=== PATIENT | male | born 1940 | race Caucasian/White ===

== ENCOUNTER 2019-04-03 18:20 | Emergency (ER) | payer OTHER, SELFPAY ==
[~2019-04-03] VITALS: Ht 172.7 cm; Wt 72.6 kg
[~2019-04-03 18:20] MED LIST: FOLI1 PO; METO25ER PO; NIAC500 PO
== END 2019-04-03 19:41 | disposition home or self-care (01) ==
LOC: ER 18:20
DX: S01.81XA Laceration without foreign body of other part of head, initial encounter (principal); W01.198A Fall on same level from slipping, tripping and stumbling with subsequent striking against other object, initial encounter; I10 Essential (primary) hypertension; E78.5 Hyperlipidemia, unspecified; Z87.891 Personal history of nicotine dependence
CPT/HCPCS: 12013; 70450; 99283-25

== ENCOUNTER 2019-04-18 15:08 | Inpatient (IN) | payer OTHER, SELFPAY ==
[~2019-04-18] VITALS: Ht 180.3 cm; Wt 82.6 kg
[2019-04-18] MEDS ORDERED: ASPI81CH PO (15:28)
[2019-04-18 15:35] LABS: BASOPHILS ABSOLUTE AUTO 0.01 K/mm3 (0.00-0.23); BASOPHILS PERCENT AUTO 0 % (0-2); EOSINOPHILS PERCENT AUTO 0 % (0-6); Hematocrit 46.3 % (37.0-53.0); Hemoglobin 15.8 g/dL (13.5-17.5); IMMATURE GRAN ABSOLUTE AUTO 0.04 K/mm3 (0.00-0.10); IMMATURE GRAN PERCENT AUTO 1 % (0-1); LYMPHOCYTES ABSOLUTE AUTO 0.33 K/mm3 (0.84-5.20); LYMPHOCYTES PERCENT AUTO 4 % (21-46); MONOCYTES PERCENT AUTO 7 % (4-13); Mean Corpuscular HGB 30.6 pg (26.0-34.0); Mean Corpuscular HGB Conc 34.1 g/dL (31.5-36.5); Mean Corpuscular Volume 90 fL (80-100); Mean Platelet Volume 10.1 fL (9.1-12.4); NEUTROPHILS ABSOLUTE AUTO 6.63 K/mm3 (1.96-9.15); NEUTROPHILS PERCENT AUTO 88 % (41-73); Platelet Count 128 K/mm3 (150-400); RDW Coefficient Variation 12.1 % (11.7-14.2); RDW Standard Deviation 40.3 fL (35.1-46.3); Red Blood Cell Count 5.16 M/mm3 (4.30-5.90); White Blood Cell Count 7.51 K/mm3 (4.00-11.30)
[2019-04-18 15:50] LABS: Alanine Aminotransfer (ALT/SGP 29 U/L (12-78); Albumin, Blood 3.7 g/dL (3.4-5.0); Alk Phos 99 U/L (50-136); Anion Gap 7 mmol/L (6-16); Aspartate Aminotrans (AST/SGOT 81 U/L (12-37); Bilirubin, Total 2.6 mg/dL (0.1-1.0); Blood Urea Nitrogen 26 mg/dL (8-24); Bun/Creatinine Ratio 25.5 (12.0-20.0); CO2, Blood 24 mmol/L (21-32); Calcium, Blood 8.8 mg/dL (8.5-10.1); Chloride, Blood 105 mmol/L (98-108); Creatinine, Blood 1.02 mg/dL (0.60-1.20); Globulin, Blood 3.8 g/dL (2.2-4.0); Glomerular Filtration Rate >60 (60-); Glucose, Blood 142 mg/dL (70-99); Sodium, Blood 136 mmol/L (136-145); Total Protein, Blood 7.5 g/dL (6.4-8.2)
--- NOTE | 2019-04-19 00:37 | NUR ---
LATE ENTRY ARRIVAL 2054 RECEIVED REPORT FROM NISHANT RN, ED. ARRIVED TO MEDICAL FLOOR VIA STRETCHER; ACCOMPANIED BY FAMILY (, DAUGHTER). TRANSFERED FROM STRETCHER TO BED WITH 3 PERSON ASSIST. APPEARED LETHARGIC. TEMP HIGH; MEDICATED WITH TYLENOL IN ED. WCTM. BED IN LOWEST POSITION. CALL LIGHT IN REACH. FAMILY AT BEDSIDE. WCTM.
[2019-04-19 00:41] LABS: Source, Urine Catheter
[2019-04-19 00:55] LABS: Bilirubin, Urine Neg (Neg); Blood, Urine 5+ (Neg); Glucose Qualitative, Urine Neg (Neg); Ketones, Urine 1+ (Neg); Leukocyte Esterase, Urine Neg (Neg); Nitrite, Urine Neg (Neg); Protein, Urine 3+ (Neg); Urobilinogen, Urine NORM (Normal)
[2019-04-19 01:04] LABS: Appearance, Urine Clear (Clear); Color, Urine Yellow (P-Yellow)
[2019-04-19 01:05] LABS: Amorphous Light (0-Heavy); Bacteria Not Seen /hpf; Red Blood Cells, Urine 0-2 /hpf (0-2); Squamous Epithelial Cells Not Seen /hpf (Few); White Blood Cells, Urine Not Seen /hpf (0-5)
--- NOTE | 2019-04-19 04:03 | NUR ---
LATE ENTRY 04/18/19 @ 2130 -HIGH VEW SCORE SPEECH THERAPIST EARLY INTERVENTION AWARE. PATIENT NOT IN ANY ACUTE DISTRESS AT TIME OF VITAL SIGNS. PATIENT DID HOWEVER HAVE ANY ELEVATED TEMP WHICH HE HAD RECIEVED TORADOL AND TYLENOL IN ED PRIOR TO ARRIVAL ON MEDICAL FLOOR. STATES THAT PATIENT WILL HAVE WAXING AND WANING RESPIRATIONS WHILE HE IS SLEEPING. PATIENTS VS WHERE RETAKEN AND WERE WNL. WCTM.
--- NOTE | 2019-04-19 04:32 | NUR ---
SHIFT SUMMARY A/O SELF AND FAMILY, MAKES NEEDS KNOWN. COOPERATIVE WITH CARE. ANSWERS QUESTIONS APPROPRIATELY. NO C/O PAIN/DISCOMFORT. FEVER UPON ARRIVAL TO UNIT WHICH HAS SUBSIDED; WILL AWAIT MORNING VS. UA COLLECTED BY STRAIGHT CATH. GIVEN FLUIDS/BOLUS AND ABX PER ORDERS. PICTURES OBTAINED FOR ABRASIONS/ECCHYMOSES R/T FALLS AT HOME. APPEARED TO REST MUCH OF SHIFT. BED IN LOWEST POSITION; ALARM ON. CALL LIGHT WITHIN REACH. WCTM. REPORT TO ONCOMING RN.
[2019-04-19 05:26] LABS: BASOPHILS ABSOLUTE AUTO 0.02 K/mm3 (0.00-0.23); BASOPHILS PERCENT AUTO 0 % (0-2); EOSINOPHILS PERCENT AUTO 0 % (0-6); Hematocrit 43.6 % (37.0-53.0); Hemoglobin 14.7 g/dL (13.5-17.5); IMMATURE GRAN ABSOLUTE AUTO 0.04 K/mm3 (0.00-0.10); IMMATURE GRAN PERCENT AUTO 1 % (0-1); LYMPHOCYTES ABSOLUTE AUTO 0.55 K/mm3 (0.84-5.20); LYMPHOCYTES PERCENT AUTO 6 % (21-46); MONOCYTES ABSOLUTE AUTO 0.53 K/mm3 (0.16-1.47); MONOCYTES PERCENT AUTO 6 % (4-13); Mean Corpuscular HGB 30.8 pg (26.0-34.0); Mean Corpuscular HGB Conc 33.7 g/dL (31.5-36.5); Mean Corpuscular Volume 91 fL (80-100); Mean Platelet Volume 10.1 fL (9.1-12.4); NEUTROPHILS ABSOLUTE AUTO 7.43 K/mm3 (1.96-9.15); NEUTROPHILS PERCENT AUTO 87 % (41-73); Platelet Count 94 K/mm3 (150-400); RDW Coefficient Variation 12.5 % (11.7-14.2); RDW Standard Deviation 41.8 fL (35.1-46.3); Red Blood Cell Count 4.78 M/mm3 (4.30-5.90); White Blood Cell Count 8.57 K/mm3 (4.00-11.30)
[2019-04-19 05:47] LABS: Magnesium, Blood 2.3 mg/dL (1.6-2.4)
[2019-04-19 05:53] LABS: Anion Gap 7 mmol/L (6-16); Blood Urea Nitrogen 30 mg/dL (8-24); Bun/Creatinine Ratio 35.2 (12.0-20.0); CO2, Blood 22 mmol/L (21-32); Chloride, Blood 109 mmol/L (98-108); Creatinine, Blood 0.85 mg/dL (0.60-1.20); Glomerular Filtration Rate >60 (60-); Glucose, Blood 115 mg/dL (70-99); Potassium, Blood 3.5 mmol/L (3.5-5.5); Sodium, Blood 138 mmol/L (136-145)
--- NOTE | 2019-04-19 18:48 | NUR ---
SHIFT SUMMARY PT SLEEPING DEEPLY THIS AFTERNOON AFTER BEING UP FOR BREAKFAST IN CHAIR AND THERAPIES IN TO SEE HIM. FAMILY FRIEND IN TO SEE PT SEVERAL TIMES TODAY. WAS DIFFICULT TO ROUSE DURING HIS DEEP SLEEP BUT WHEN FAMILY ARRIVED TO VISIT AWOKE. HASN'T VOIDED TODAY AND WAS SCANNED FOR GREATER THAN 800ML WHILE SLEEPING. ONCE HE WAS AWAKE ATTEMPTED TO VOID BUT UNABLE TO VOID. MD NOTIFIED WITH STRAIGHT CATH ORDER.
--- NOTE | 2019-04-20 05:25 | NUR ---
NOC SHIFT SUMMARY PT IS PLEASANTLY CONFUSED. HE WENT TO SLEEP THIS EVENING AND HAS LARGELY SLEPT THIS NIGHT. VSS. PLEASANT AND COOPERATIVE WITH CARE. RESP ARE EVEN AND UNLABORED ON ROOM AIR. NO ACUTE CHANGES NOTED THIS NIGHT. PT PRESENTLY APPEARS TO BE SLEEPING SOUNDLY AND IN NO ACUTE DISTRESS. WILL CONTINUE TO MONITOR.
--- NOTE | 2019-04-20 13:46 | NUR ---
Bladder scan volume is 460 mL
--- NOTE | 2019-04-20 18:36 | NUR ---
SHIFT SUMMARY PT UP TO CHAIR FOR MEALS. SLEEPING BETWEEN MEALS. NEEDED TO BE STRAIGHT CATHED TODAY AGAIN. HAS NOT VOIDED ON HIS OWN SINCE CATHETERIZED LAST NIGHT. DENIES ANY RESP DISTRESS. WEAKNESS TO L SIDE PT REPORTS HAS BEEN THERE SINCE HIS HEAD INJURY.
--- NOTE | 2019-04-21 05:03 | NUR ---
SHIFT SUMMARY: PT IS ALERT AND ORIENTED WITH SOME CONFUSION. PT IS SLOW TO REPSOND VERBALLY. PT IS CALM AND COOPERATIVE WITH CARE. PT HAS NOT VOIDED AT THIS POINT, BLADDER SCAN REVEALED 465 ML, WILL SCAN AGAIN AT 0600 AND DETERMINE IF CATHETERIZATION IS REQUIRED. PT REPORTS HEADACHE ONCE, GAVE PRN TYLENOL. PT DENIES NAUSEA, VOMITING, AND SOB. PT SLEPT INTERMITTENTLY THROUGHOUT THE NIGHT. WILL CONTINUE TO MONITOR.
--- NOTE | 2019-04-21 18:50 | NUR ---
SHIFT SUMMARY PT UP TO CHAIR FOR BREAKFAST AND LUNCH. FAMILY IN AND OUT TO VISIT. PT ABLE TO TAKE A FEW UNSTEADY STEPS TO TURN FROM COMMODE TO BED THIS MORNING. WAS INCONTINENT IN ATTEND THIS MORNING BUT HASNT VOIDED SINCE. DID GET STRAIGHT CATHED THIS AFTERNOON FOR BLADDER SCAN OF 516.
--- NOTE | 2019-04-22 04:23 | NUR ---
SHIFT SUMMARY: PT IS ALERT AND ORIENTED WITH BASELINE CONFUSION. PT IS CALM AND COOPERATIVE WITH CARE. PT CALLS APPROPRIATELY. PT NOT OUT OF BED OVERNIGHT. PT HAVING URINARY RETENTION, CURRENTLY TRYING TO VOID IN URINAL, WILL BLADDER SCAN POST VOID. PT REPORTS HEADACHE EARLY IN THE NIGHT, GAVE PRN TYLENOL. PT DENIES NAUSEA, VOMITING, AND SOB. POSSIBLE DISCHARGE TODAY. NO ACUTE CHANGES OR COMPLICATIONS. WILL CONTINUE TO MONITOR.
[2019-04-22 05:37] LABS: BASOPHILS ABSOLUTE AUTO 0.04 K/mm3 (0.00-0.23); BASOPHILS PERCENT AUTO 1 % (0-2); EOSINOPHILS ABSOLUTE AUTO 0.24 K/mm3 (0.00-0.68); EOSINOPHILS PERCENT AUTO 6 % (0-6); Hematocrit 39.7 % (37.0-53.0); Hemoglobin 13.4 g/dL (13.5-17.5); IMMATURE GRAN ABSOLUTE AUTO 0.04 K/mm3 (0.00-0.10); IMMATURE GRAN PERCENT AUTO 1 % (0-1); LYMPHOCYTES ABSOLUTE AUTO 1.01 K/mm3 (0.84-5.20); LYMPHOCYTES PERCENT AUTO 26 % (21-46); MONOCYTES ABSOLUTE AUTO 0.37 K/mm3 (0.16-1.47); MONOCYTES PERCENT AUTO 9 % (4-13); Mean Corpuscular HGB 30.5 pg (26.0-34.0); Mean Corpuscular HGB Conc 33.8 g/dL (31.5-36.5); Mean Corpuscular Volume 90 fL (80-100); Mean Platelet Volume 10.5 fL (9.1-12.4); NEUTROPHILS ABSOLUTE AUTO 2.22 K/mm3 (1.96-9.15); NEUTROPHILS PERCENT AUTO 57 % (41-73); Platelet Count 117 K/mm3 (150-400); RDW Coefficient Variation 12.6 % (11.7-14.2); RDW Standard Deviation 41.6 fL (35.1-46.3); White Blood Cell Count 3.92 K/mm3 (4.00-11.30)
[2019-04-22 06:03] LABS: Alanine Aminotransfer (ALT/SGP 39 U/L (12-78); Albumin, Blood 2.8 g/dL (3.4-5.0); Albumin/Globulin Ratio 0.9 (0.8-1.8); Alk Phos 72 U/L (50-136); Anion Gap 6 mmol/L (6-16); Aspartate Aminotrans (AST/SGOT 42 U/L (12-37); Bilirubin, Total 0.8 mg/dL (0.1-1.0); Blood Urea Nitrogen 16 mg/dL (8-24); Bun/Creatinine Ratio 19.7 (12.0-20.0); CO2, Blood 26 mmol/L (21-32); Chloride, Blood 106 mmol/L (98-108); Creatinine, Blood 0.81 mg/dL (0.60-1.20); Globulin, Blood 3.2 g/dL (2.2-4.0); Glomerular Filtration Rate >60 (60-); Glucose, Blood 99 mg/dL (70-99); Sodium, Blood 138 mmol/L (136-145)
[2019-04-22] MEDS ORDERED: METO25 PO (14:35)
[2019-04-22] MEDS ORDERED: TAMS.4ER PO (14:35)
[2019-04-22] MEDS ORDERED: LEVFLO500 PO (14:36)
--- NOTE | 2019-04-22 17:50 | NUR ---
DISCHARGE SUMMARY: PATIENT CALM AND COOPERATIVE THROUGHOUT THE SHIFT. PATIENT DENIED PAIN OR DISCOMFORT. PATIENT DID HAVE A BLADDER SCAN OF OVER 500 (633). STRAIGHT CATHED PER ORDERS. PATIENT TOLERATED WELL. PATIENT HAS AN ADEQUATE APPETITE. PATIENT USED CALL LIGHT APPROPRIATELY. PATIENT UP TO THE [facility] THIS MORNING. PATIENT DISCHARGED THIS AFTERNOON TO [facility]. REPORT CALLED TO FACILITY. ALL QUESTIONS AND CONCERNS ADDRESSED. PATIENT TRANSFERED WITH TRANSPORT. PROVIDED WITH DISCHARGE PACKET.
== END 2019-04-22 18:07 | DRG 871 ==
LOC: ER 15:08 → MEDS 19:40 → ER 20:48 → MEDS 20:54 → ER 21:01 → ENPENDDIS 04-22 13:14 → MEDS 04-22 18:07
PROVIDERS: Emergency Medicine; Internal Medicine; Nurse Practitioner Acute Care; ADMIT Internal Medicine
DX: A41.9 Sepsis, unspecified organism (principal); J18.1 Lobar pneumonia, unspecified organism; G92 Toxic encephalopathy; F02.81 Dementia in other diseases classified elsewhere, unspecified severity, with behavioral disturbance; G30.9 Alzheimer's disease, unspecified; I25.10 Atherosclerotic heart disease of native coronary artery without angina pectoris; I10 Essential (primary) hypertension; E78.00 Pure hypercholesterolemia, unspecified; Z86.711 Personal history of pulmonary embolism; Z95.1 Presence of aortocoronary bypass graft; R29.6 Repeated falls; G93.89 Other specified disorders of brain; S00.03XA Contusion of scalp, initial encounter; R33.9 Retention of urine, unspecified; Z74.01 Bed confinement status; N40.1 Benign prostatic hyperplasia with lower urinary tract symptoms; Y92.009 Unspecified place in unspecified non-institutional (private) residence as the place of occurrence of the external cause; W22.8XXA Striking against or struck by other objects, initial encounter; Z79.82 Long term (current) use of aspirin
CPT/HCPCS: 36415; 51701; 70450; 71046; 80048; 80053; 81001; 83605; 83735; 84153; 84443; 85025; 87040; 93005; 93010; 96365; 96375; 97110; 97161; 97166; 97530; 97535; 99285-25; A9270; J0456; J0696; J1650; J1885; J7030; J7040; J7050

== ENCOUNTER → 2019-06-09 | Outpatient (CLI) | payer OTHER ==
[~2019-06-09] MED LIST changes: +ASPI81CH PO; +Amoxicillin500 MG PO; +CEFP200 PO; +LEVFLO500 PO; +METO25 PO; +TAMS.4ER PO
[2019-06-09 15:22] LABS: Source, Urine Catheter
[2019-06-09 18:20] LABS: Bilirubin, Urine Neg (Neg); Blood, Urine 5+ (Neg); Glucose Qualitative, Urine Neg (Neg); Ketones, Urine 1+ (Neg); Leukocyte Esterase, Urine 3+ (Neg); Nitrite, Urine Pos (Neg); Protein, Urine 3+ (Neg); Specific Gravity, Urine 1.025 (1.003-1.022); Urobilinogen, Urine NORM (Normal)
[2019-06-09 18:37] LABS: Appearance, Urine Turbid (Clear); Color, Urine Amber (P-Yellow)
[2019-06-09 18:38] LABS: Bacteria Many /hpf; Red Blood Cells, Urine TNTC /hpf (0-2); Squamous Epithelial Cells Not Seen /hpf (Few); White Blood Cells, Urine TNTC /hpf (0-5)
== END | disposition home or self-care (01) ==
LOC: LAB SRC 12:45 → LAB SHORT 12:45
PROVIDERS: Internal Medicine
DX: N39.0 Urinary tract infection, site not specified (principal)
CPT/HCPCS: 81001; 87077; 87086; 87186

== ENCOUNTER 2019-06-10 11:38 | Emergency (ER) | payer OTHER ==
[~2019-06-10] VITALS: Ht 177.8 cm; Wt 86.2 kg
[~2019-06-10 11:38] MED LIST changes: -Amoxicillin500 MG PO; -CEFP200 PO
[2019-06-10 12:08] LABS: Source, Urine Catheter
[2019-06-10 12:18] LABS: BASOPHILS ABSOLUTE AUTO 0.06 K/mm3 (0.00-0.23); BASOPHILS PERCENT AUTO 1 % (0-2); EOSINOPHILS PERCENT AUTO 6 % (0-6); Hematocrit 45.1 % (37.0-53.0); Hemoglobin 15.1 g/dL (13.5-17.5); IMMATURE GRAN ABSOLUTE AUTO 0.05 K/mm3 (0.00-0.10); IMMATURE GRAN PERCENT AUTO 1 % (0-1); LYMPHOCYTES ABSOLUTE AUTO 1.62 K/mm3 (0.84-5.20); LYMPHOCYTES PERCENT AUTO 20 % (21-46); MONOCYTES ABSOLUTE AUTO 0.59 K/mm3 (0.16-1.47); MONOCYTES PERCENT AUTO 7 % (4-13); Mean Corpuscular HGB 29.5 pg (26.0-34.0); Mean Corpuscular HGB Conc 33.5 g/dL (31.5-36.5); Mean Corpuscular Volume 88 fL (80-100); Mean Platelet Volume 9.6 fL (9.1-12.4); NEUTROPHILS ABSOLUTE AUTO 5.17 K/mm3 (1.96-9.15); NEUTROPHILS PERCENT AUTO 65 % (41-73); Platelet Count 257 K/mm3 (150-400); RDW Coefficient Variation 12.6 % (11.7-14.2); RDW Standard Deviation 40.6 fL (35.1-46.3); Red Blood Cell Count 5.12 M/mm3 (4.30-5.90); White Blood Cell Count 7.99 K/mm3 (4.00-11.30)
[2019-06-10 12:19] LABS: Bilirubin, Urine Neg (Neg); Blood, Urine 3+ (Neg); Glucose Qualitative, Urine Neg (Neg); Ketones, Urine Neg (Neg); Leukocyte Esterase, Urine 3+ (Neg); Nitrite, Urine Neg (Neg); Protein, Urine 3+ (Neg); Specific Gravity, Urine 1.025 (1.003-1.022); Urobilinogen, Urine 1+ (Normal)
[2019-06-10 12:26] LABS: Appearance, Urine Turbid (Clear); Bacteria Mod /hpf; Color, Urine Yellow (P-Yellow); Red Blood Cells, Urine TNTC /hpf (0-2); Squamous Epithelial Cells Not Seen /hpf (Few); White Blood Cells, Urine TNTC /hpf (0-5)
[2019-06-10 12:27] LABS: Mucus Light (0-Heavy)
[2019-06-10 12:38] LABS: Alanine Aminotransfer (ALT/SGP 16 U/L (12-78); Albumin/Globulin Ratio 0.6 (0.8-1.8); Alk Phos 104 U/L (50-136); Anion Gap 7 mmol/L (6-16); Aspartate Aminotrans (AST/SGOT 15 U/L (12-37); Bilirubin, Total 1.6 mg/dL (0.1-1.0); Blood Urea Nitrogen 22 mg/dL (8-24); Bun/Creatinine Ratio 28.3 (12.0-20.0); CO2, Blood 26 mmol/L (21-32); Calcium, Blood 9.2 mg/dL (8.5-10.1); Chloride, Blood 104 mmol/L (98-108); Creatinine, Blood 0.78 mg/dL (0.60-1.20); Globulin, Blood 4.9 g/dL (2.2-4.0); Glomerular Filtration Rate >60 (60-); Glucose, Blood 110 mg/dL (70-99); Potassium, Blood 4.4 mmol/L (3.5-5.5); Sodium, Blood 137 mmol/L (136-145); Total Protein, Blood 7.9 g/dL (6.4-8.2)
[2019-06-10] MEDS ORDERED: CEFP200 PO (14:00)
== END 2019-06-10 15:20 | disposition home or self-care (01) ==
LOC: ER 11:38
PROVIDERS: Emergency Medicine
DX: N39.0 Urinary tract infection, site not specified (principal); I10 Essential (primary) hypertension; Z86.711 Personal history of pulmonary embolism; Z87.891 Personal history of nicotine dependence; Z96.0 Presence of urogenital implants; Z79.899 Other long term (current) drug therapy; Z79.82 Long term (current) use of aspirin
CPT/HCPCS: 36415; 71046; 80053; 81001; 85025; 87077; 87086; 87186; 93005; 93010; 96361; 96365; 99285-25; J0696; J7030

== ENCOUNTER → 2019-07-01 | Outpatient (CLI) | payer OTHER ==
[~2019-07-01] MED LIST changes: +Amoxicillin500 MG PO; +CEFP200 PO
[2019-07-01 14:27] LABS: Bilirubin, Urine Neg (Neg); Blood, Urine 5+ (Neg); Glucose Qualitative, Urine Neg (Neg); Ketones, Urine Neg (Neg); Leukocyte Esterase, Urine 3+ (Neg); Nitrite, Urine Neg (Neg); Protein, Urine 3+ (Neg); Source, Urine Catheter; Specific Gravity, Urine 1.025 (1.003-1.022); Urobilinogen, Urine NORM (Normal)
[2019-07-01 14:49] LABS: Appearance, Urine Turbid (Clear); Color, Urine Yellow (P-Yellow)
[2019-07-01 15:06] LABS: White Blood Cells, Urine TNTC /hpf (0-5)
[2019-07-01 15:07] LABS: Bacteria Many /hpf; Calcium Oxalate Crystals Few /hpf; Squamous Epithelial Cells Not Seen /hpf (Few); Uric Acid Crystals Few /hpf
== END | disposition home or self-care (01) ==
LOC: LAB 13:32 → LAB SHORT 13:32
PROVIDERS: Internal Medicine
DX: N39.0 Urinary tract infection, site not specified (principal)
CPT/HCPCS: 81001; 87077; 87086; 87186

== ENCOUNTER 2019-07-16 15:58 | Emergency (ER) | payer OTHER ==
[~2019-07-16] VITALS: Ht 180.3 cm; Wt 52.6 kg
[~2019-07-16 15:58] MED LIST changes: -Amoxicillin500 MG PO
[2019-07-16 16:31] LABS: BASOPHILS ABSOLUTE AUTO 0.03 K/mm3 (0.00-0.23); BASOPHILS PERCENT AUTO 0 % (0-2); EOSINOPHILS ABSOLUTE AUTO 0.01 K/mm3 (0.00-0.68); EOSINOPHILS PERCENT AUTO 0 % (0-6); Hematocrit 46.1 % (37.0-53.0); IMMATURE GRAN ABSOLUTE AUTO 0.04 K/mm3 (0.00-0.10); IMMATURE GRAN PERCENT AUTO 0 % (0-1); LYMPHOCYTES PERCENT AUTO 9 % (21-46); MONOCYTES ABSOLUTE AUTO 1.13 K/mm3 (0.16-1.47); MONOCYTES PERCENT AUTO 9 % (4-13); Mean Corpuscular HGB 29.3 pg (26.0-34.0); Mean Corpuscular HGB Conc 32.5 g/dL (31.5-36.5); Mean Corpuscular Volume 90 fL (80-100); Mean Platelet Volume 9.9 fL (9.1-12.4); NEUTROPHILS ABSOLUTE AUTO 9.67 K/mm3 (1.96-9.15); NEUTROPHILS PERCENT AUTO 81 % (41-73); Platelet Count 149 K/mm3 (150-400); RDW Coefficient Variation 13.4 % (11.7-14.2); RDW Standard Deviation 44.4 fL (35.1-46.3); Red Blood Cell Count 5.12 M/mm3 (4.30-5.90); White Blood Cell Count 11.98 K/mm3 (4.00-11.30)
[2019-07-16 16:39] LABS: Source, Urine Catheter
[2019-07-16] MEDS ORDERED: Amoxicillin500 MG PO (16:42)
[2019-07-16] MEDS ORDERED: LEVFLO500 PO (16:42)
[2019-07-16 16:45] LABS: Bilirubin, Urine Neg (Neg); Leukocyte Esterase, Urine 2+ (Neg); Protein, Urine 3+ (Neg); Urobilinogen, Urine NORM (Normal)
[2019-07-16 17:21] LABS: Blood, Urine 3+ (Neg); Specific Gravity, Urine 1.015 (1.003-1.022)
[2019-07-16 17:24] LABS: Appearance, Urine Turbid (Clear); Color, Urine Yellow (P-Yellow); Glucose Qualitative, Urine 1+ (Neg); Ketones, Urine 1+ (Neg); Nitrite, Urine Pos (Neg)
[2019-07-16 17:25] LABS: Bacteria Many /hpf; Mucus Heavy (0-Heavy); Red Blood Cells, Urine TNTC /hpf (0-2); Squamous Epithelial Cells Not Seen /hpf (Few); White Blood Cells, Urine TNTC /hpf (0-5)
== END 2019-07-16 17:00 | disposition home or self-care (01) ==
LOC: ER 15:58
PROVIDERS: Internal Medicine
DX: T83.031A Leakage of indwelling urethral catheter, initial encounter (principal); N39.0 Urinary tract infection, site not specified; I10 Essential (primary) hypertension; Z86.711 Personal history of pulmonary embolism; Z87.891 Personal history of nicotine dependence; Z79.899 Other long term (current) drug therapy; Z79.82 Long term (current) use of aspirin
CPT/HCPCS: 51702; 81001; 85025; 87086; 99283-25

== ENCOUNTER 2019-08-03 17:16 | Inpatient (IN) | payer OTHER ==
[~2019-08-03] VITALS: Ht 177.8 cm; Wt 71.4 kg
[~2019-08-03 17:16] MED LIST changes: +Amoxicillin500 MG PO
[2019-08-03 18:37] LABS: Base Excess Venous 3.1 mmol/L; Bicarbonate Venous 25.7 mmol/L (24.0-30.0); PCO2 Venous 43.9 mmHg (38-42); PO2 Venous 29.2 mmHg (38-42); pH Blood Venous 7.41 (7.34-7.37)
[2019-08-03 18:41] LABS: BASOPHILS ABSOLUTE AUTO 0.05 K/mm3 (0.00-0.23); BASOPHILS PERCENT AUTO 1 % (0-2); EOSINOPHILS ABSOLUTE AUTO 0.13 K/mm3 (0.00-0.68); EOSINOPHILS PERCENT AUTO 1 % (0-6); Hematocrit 40.1 % (37.0-53.0); Hemoglobin 13.2 g/dL (13.5-17.5); IMMATURE GRAN ABSOLUTE AUTO 0.04 K/mm3 (0.00-0.10); IMMATURE GRAN PERCENT AUTO 0 % (0-1); LYMPHOCYTES ABSOLUTE AUTO 1.09 K/mm3 (0.84-5.20); LYMPHOCYTES PERCENT AUTO 10 % (21-46); MONOCYTES ABSOLUTE AUTO 0.67 K/mm3 (0.16-1.47); MONOCYTES PERCENT AUTO 6 % (4-13); Mean Corpuscular HGB 29.2 pg (26.0-34.0); Mean Corpuscular HGB Conc 32.9 g/dL (31.5-36.5); Mean Corpuscular Volume 89 fL (80-100); Mean Platelet Volume 9.6 fL (9.1-12.4); NEUTROPHILS ABSOLUTE AUTO 8.69 K/mm3 (1.96-9.15); NEUTROPHILS PERCENT AUTO 81 % (41-73); Platelet Count 213 K/mm3 (150-400); RDW Standard Deviation 45.3 fL (35.1-46.3); Red Blood Cell Count 4.52 M/mm3 (4.30-5.90); White Blood Cell Count 10.67 K/mm3 (4.00-11.30)
[2019-08-03 18:57] LABS: C-REACTIVE PROTEIN, EXT RANGE 12.1 mg/dL (0.000-0.300)
[2019-08-03 18:58] LABS: International Normalized Ratio 1.23; Prothrombin Time Results 12.8 Sec (9.7-11.5)
[2019-08-03 19:09] LABS: Alanine Aminotransfer (ALT/SGP 29 U/L (12-78); Albumin, Blood 2.5 g/dL (3.4-5.0); Albumin/Globulin Ratio 0.6 (0.8-1.8); Alk Phos 92 U/L (50-136); Anion Gap 7 mmol/L (6-16); Aspartate Aminotrans (AST/SGOT 42 U/L (12-37); Blood Urea Nitrogen 18 mg/dL (8-24); Bun/Creatinine Ratio 27.4 (12.0-20.0); CO2, Blood 26 mmol/L (21-32); Calcium, Blood 8.7 mg/dL (8.5-10.1); Chloride, Blood 104 mmol/L (98-108); Creatinine, Blood 0.66 mg/dL (0.60-1.20); Globulin, Blood 4.4 g/dL (2.2-4.0); Glomerular Filtration Rate >60 (60-); Glucose, Blood 159 mg/dL (70-99); Potassium, Blood 4.2 mmol/L (3.5-5.5); Sodium, Blood 137 mmol/L (136-145); Total Protein, Blood 6.9 g/dL (6.4-8.2)
[2019-08-03 19:47] LABS: Creatine Kinase MB 6.6 ng/mL (0.0-3.6); Creatine Kinase MB Index 0.8 (0.0-4.0)
[2019-08-03 21:41] LABS: Source, Urine Catheter
[2019-08-03 21:44] LABS: Bilirubin, Urine Neg (Neg); Blood, Urine 5+ (Neg); Glucose Qualitative, Urine Neg (Neg); Ketones, Urine Neg (Neg); Leukocyte Esterase, Urine 3+ (Neg); Nitrite, Urine Neg (Neg); Protein, Urine 3+ (Neg); Specific Gravity, Urine 1.015 (1.003-1.022); Urobilinogen, Urine 2+ (Normal)
[2019-08-03 21:46] LABS: Appearance, Urine Hazy (Clear); Color, Urine Yellow (P-Yellow)
[2019-08-03 22:04] LABS: Bacteria Many /hpf; Hyaline Casts 0-2 /lpf (0-2); Mucus Mod (0-Heavy); Red Blood Cells, Urine 50-100 /hpf (0-2); Squamous Epithelial Cells Few /hpf (Few); White Blood Cells, Urine 50-100 /hpf (0-5)
[2019-08-04 03:58] LABS: BASOPHILS ABSOLUTE AUTO 0.05 K/mm3 (0.00-0.23); BASOPHILS PERCENT AUTO 1 % (0-2); EOSINOPHILS ABSOLUTE AUTO 0.13 K/mm3 (0.00-0.68); EOSINOPHILS PERCENT AUTO 2 % (0-6); Hematocrit 34.7 % (37.0-53.0); Hemoglobin 11.4 g/dL (13.5-17.5); IMMATURE GRAN ABSOLUTE AUTO 0.04 K/mm3 (0.00-0.10); IMMATURE GRAN PERCENT AUTO 1 % (0-1); LYMPHOCYTES ABSOLUTE AUTO 1.15 K/mm3 (0.84-5.20); LYMPHOCYTES PERCENT AUTO 14 % (21-46); MONOCYTES ABSOLUTE AUTO 0.65 K/mm3 (0.16-1.47); MONOCYTES PERCENT AUTO 8 % (4-13); Mean Corpuscular HGB 28.7 pg (26.0-34.0); Mean Corpuscular HGB Conc 32.9 g/dL (31.5-36.5); Mean Corpuscular Volume 87 fL (80-100); Mean Platelet Volume 9.9 fL (9.1-12.4); NEUTROPHILS ABSOLUTE AUTO 6.14 K/mm3 (1.96-9.15); NEUTROPHILS PERCENT AUTO 75 % (41-73); Platelet Count 183 K/mm3 (150-400); RDW Coefficient Variation 13.9 % (11.7-14.2); RDW Standard Deviation 44.3 fL (35.1-46.3); Red Blood Cell Count 3.97 M/mm3 (4.30-5.90); White Blood Cell Count 8.16 K/mm3 (4.00-11.30)
[2019-08-04 04:16] LABS: Anion Gap 7 mmol/L (6-16); Blood Urea Nitrogen 15 mg/dL (8-24); Bun/Creatinine Ratio 21.7 (12.0-20.0); CO2, Blood 25 mmol/L (21-32); Chloride, Blood 107 mmol/L (98-108); Creatinine, Blood 0.69 mg/dL (0.60-1.20); Glomerular Filtration Rate >60 (60-); Glucose, Blood 131 mg/dL (70-99); Potassium, Blood 3.4 mmol/L (3.5-5.5); Sodium, Blood 139 mmol/L (136-145)
--- NOTE | 2019-08-04 07:21 | NUR ---
ADMIT NOTE: PT ARRIVED TO ICU 3 VIA GURNEY FROM ED. PT ORIENTED TO PLACE, TOWN, SELF. VSS. SATS 3-94% ON RA. PT ON HEPARING gtt AT 15u UPON ADMIT AND RESUMED RATE PER PHARMACY AFTER FOLLOWING pTT LEVEL. PT WITH LOWER EXT CONTRACTURES. SPOUSE STATED PT LAYS IN POSITION AT HOME AND IS DIFFICULT TO TURN. PT'S SPOUSE STATED PT REFUSING TO RETURN TO DOCTOR'S FOR FOLLOW UP RE: RECENT UTI AND HOME ON ANTIBIOTICS WHICH PT'S SPOUSE STATED DID COMPLETE. PT SPOUSE REQUESTING PT BE PLACED ON HOSPICE. PT STATED HIMSELF DOES NOT TAKE ANY MEDICATIONS. PT'S SPOUSE STATED PT DOES NOT EAT MUCH AND CAN SWALLOW THICKENED LIQUIDS AND IS MECHANICAL SOFT DIET AT HOME. PT REQUESTED SOMETHING TO EAT AND DRINK AND DRUNK TWO CONTAINERS THICKENED APPLE JUICE OUT OF CUP WITH ASSIST. PT SWALLOWED WITHOUT DIFFICULTY. PT WITH CHRONIC WET COUGH THAT PT'S SPOUSE STATED THAT PT HAS HAD FOR MONTHS. PT SLEPT REST OF AM AFTER INITIAL ADMIT AND AWAKENED THIS AM WITH RN'S AT BEDSIDE DURING REPORT. VITALS REMAIN STABLE. REPORT GIVEN TO ONCOMING RN KALE TO ASSUME CARE AT THIS TIME.
--- NOTE | 2019-08-04 08:45 | NUR ---
SPEECH THERAPY Lorna from speech therapy working with pt at this time.
--- NOTE | 2019-08-04 09:42 | NUR ---
ST UPDATE After ST worked with pt, pt was coughing and had coarse crackles to bilateral lower lobes with auscultation. Plan for modified barium swallow this AM.
--- NOTE | 2019-08-04 11:25 | NUR ---
DR AKHTAR IN TO SEE PT Pt nora for medical floor status without telemetry.
--- NOTE | 2019-08-04 15:15 | NUR ---
HOME CARE / CONCERNS This RN provided pt with oral care prior to eating lunch. Poor dentition noted. Pt has several missing teeth. Casts cleaned from mouth. Pt stated "I don't remember the last time my teeth were brushed." Pt states he usually brushes his own teeth. This RN asked pt why he has not brushed his teeth, he states "I haven't been able to get out of bed". When this RN asks pt how long he has been bedbound, he states "forever". After oral care provided, this RN assisted pt to take xarelto whole in applesauce. Pt tolerated this well without sx aspiration. This RN assisted pt to eat lunch. Pt had about five bites of lunch, then requested something to drink. Pt drank 120 mL of thickened apple juice, 240 mL of thickened orange juice, and then stated he was done with lunch. He requested ice cream and ate four containers of ice cream and drank one vanilla ensure. After this, he stated "I think I am full now". This RN asked patient what kind of care his provides. Pt thinks about the question and states "housewife stuff". This RN asks pt, "what does your do for you, to help you stay healthy?" Pt states "nothing". Pt adds "I hardly ever see my ." This RN asks pt if he and his live together, he states "yes". When asked why he hardly sees his , pt states "she is in a different room". This RN asked patient if he eats every day at home, he states "yes". When asked if he gets enough to eat every day, he states "yes". This RN asks pt if he feeds himself or has his feed him, he states "I wouldn't dare ask her to feed me."
--- NOTE | 2019-08-04 18:09 | NUR ---
MENTATION Pt is A&O x 2. Consistenly able to state he is in "[facility]". Pt consistently states year incorrectly as "2021". Pt is forgetful at times. When education is provided, pt appears receptive. For example, this AM, pt repeatedly inquired "When is lunch?" When this RN educated pt about swallow precautions and strict NPO, pt verbalized understanding and quit asking about lunch. When lunch was provided, this RN explained that HOB had to be maximally elevated. During subsequent feedings, pt verbalized understanding to why HOB had to be maximally elevated. Pt is able to verbalize needs. He verbalizes if he is too hot or too cold. He verbalizes discomfort in bed and desire to be repositioned. He was able to verbalize discomfort when cords were underneath his legs. When this RN enters room to reposition pt, pt consistenly responds with "I think that's a good idea" or "Good! I was starting to get uncomfortable". Pt also calls staff into room if he feels he needs repositioning more often than every two hours. In summary, while pt is forgetful at times, he is able to be an active participant in his care. He is able to verbalize his needs and able to understand education that is provided. Pt verbalized that tomorrow, he would like to sit up in a chair, if possible.
--- NOTE | 2019-08-04 18:23 | NUR ---
SUMMARY Pt medical floor status without telemetry. VSS. Pt on room air. SpO2 90% or greater. Pt has a nonproductive cough. Pt has tolerated puree diet and nectar thick liquids well. Pt tolerates pills whole in applesauce, one at a time. Pt tolerated Matthew well when mixed with vanilla ensure. Pt has maguire catheter in place with low urine output this shift. Will continue to closely monitor. 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 Small amount of bleeding noted to meatus. Pt has pressure ulcer to left hip, unstagable due to presence of eschar. Benzoin tincture added to site. Left open to air, skin did not tolerate removal of pink foam dressing. Pt also has small pressure ulcer to coccyx. Pt has red area to left ishchial tuberosity that blanches. Pt has been repositioned supine and onto right side. Heparin drip infusing per orders. Pt has not had any in-room visitors this shift. Will continue to closely monitor until care handoff and bedside report with oncoming RN.
--- NOTE | 2019-08-04 23:49 | NUR ---
PT AWAKENS REQUESTING TV. PT GIVEN 2200 MED C/ APPLE SAUCE. PT TOLERATED WELL. VSS. PT CURRENTLY CRISS FOWLERS, CRADLED IN PILLOWS, LWR EXT ELEVATED ON PILLOWS. CALL LIGHT IN HAND.
--- NOTE | 2019-08-05 00:38 | NUR ---
START OF SHIFT: PT A+O TO SELF AND PLACE. VSS. PT ABLE TO USE CALL LIGHT AND VERBALIZE NEEDS. PT FREQUENTLY REQUESTING TURNS AND FEET TO BE MOVED FOR COMFORT. PT WITH SMALL BM WHICH WAS PASTY, BROWN. PT DRINKS THICKENED APPLE JUICE AND WANTS TO EAT ALL OF HIS APPLE SAUCE AFTER KICK PRESS SETTER. OTHERWISE, PT WATCHES TV WHEN AWAKE AND USES CALL LIGHT APPROPRIATELY.
--- NOTE | 2019-08-05 01:29 | NUR ---
PT RECEIVED 2ND DOSE XARELTO: HEPARIN gtt WAS INFACT DC'D PRIOR SHIFT HOWEVER HAS BEEN CONTINUING TO INFUSE UNTIL THIS SECOND DOSE. HEPARIN gtt STOPPED. DR. MCKAY NOTIFIED AND UPDATED. NO NEW ORDERS AT THIS TIME.
[2019-08-05 04:04] LABS: BASOPHILS ABSOLUTE AUTO 0.04 K/mm3 (0.00-0.23); BASOPHILS PERCENT AUTO 1 % (0-2); EOSINOPHILS ABSOLUTE AUTO 0.19 K/mm3 (0.00-0.68); EOSINOPHILS PERCENT AUTO 3 % (0-6); Hematocrit 29.6 % (37.0-53.0); Hemoglobin 9.7 g/dL (13.5-17.5); IMMATURE GRAN ABSOLUTE AUTO 0.03 K/mm3 (0.00-0.10); IMMATURE GRAN PERCENT AUTO 0 % (0-1); LYMPHOCYTES ABSOLUTE AUTO 1.24 K/mm3 (0.84-5.20); LYMPHOCYTES PERCENT AUTO 19 % (21-46); MONOCYTES ABSOLUTE AUTO 0.56 K/mm3 (0.16-1.47); MONOCYTES PERCENT AUTO 8 % (4-13); Mean Corpuscular HGB 28.8 pg (26.0-34.0); Mean Corpuscular HGB Conc 32.8 g/dL (31.5-36.5); Mean Corpuscular Volume 88 fL (80-100); Mean Platelet Volume 9.8 fL (9.1-12.4); NEUTROPHILS ABSOLUTE AUTO 4.61 K/mm3 (1.96-9.15); NEUTROPHILS PERCENT AUTO 69 % (41-73); Platelet Count 182 K/mm3 (150-400); RDW Coefficient Variation 14.2 % (11.7-14.2); RDW Standard Deviation 45.4 fL (35.1-46.3); Red Blood Cell Count 3.37 M/mm3 (4.30-5.90); White Blood Cell Count 6.67 K/mm3 (4.00-11.30)
[2019-08-05 04:21] LABS: Anion Gap 7 mmol/L (6-16); Blood Urea Nitrogen 19 mg/dL (8-24); CO2, Blood 26 mmol/L (21-32); Calcium, Blood 7.5 mg/dL (8.5-10.1); Chloride, Blood 107 mmol/L (98-108); Creatinine, Blood 0.59 mg/dL (0.60-1.20); Glomerular Filtration Rate >60 (60-); Glucose, Blood 121 mg/dL (70-99); Sodium, Blood 140 mmol/L (136-145)
--- NOTE | 2019-08-05 04:40 | NUR ---
ORAL CONSUMPTION: T/O NOC, PT HAS REQUESTED DRINKS AND FOOD. PT HAS CONSUMED TOTAL: 3 CARTONS OF THICKENED APPLE JUICE, TWO CONTAINERS OF APPLE SAUCE, BITES OF PUREED SOUP, AND 3/4 CUP OF YOGURT.
--- NOTE | 2019-08-05 07:33 | NUR ---
ASSUMED CARE: PT RESTING IN BED, WATCHING TV AT THIS TIME. APPEARS FORGETFUL AT TIMES AND HARD OF HEARING. DENIES NEEDS OR CONCERNS AT THIS TIME.
--- NOTE | 2019-08-05 12:07 | NUR ---
PT TRANSFERRED TO ROOM 361. REPORT CALLED TO JOSELYN REYNA AND CARE MANAGEMENT. DISCUSSED WITH CARE MANAGEMENT DAUGHTER'S WISH FOR HOME HOSPICE. [employer] STATES SHE WILL COORDINATE WITH PALLIATIVE CARE AND MD. DAUGHTER AWARE. PT'S FAMILY AWARE OF TRANSFER. ESCORTED VIA BED BY DONNA
--- NOTE | 2019-08-05 12:53 | NUR ---
PATIENT HAS BEEN TRANSFERRED FROM ICU TO THE MEDICAL FLOOR. HE IS COMFORTABLE AND ASSESSMENT HAS BEEN DONE. PATIENT DENIES ANY PAIN OR COMPLAINTS AT THIS TIME.
--- NOTE | 2019-08-05 17:52 | NUR ---
SHIFT SUMMARY PATIENT IS PLEASANT, ALERT TO SELF. HE DOES KNOW HE IS IN THE HOSPITAL AND WHO HIS FAMNILY IS. CALLS APPROPRIATELY BUT DOES USE HIS CALL BUTTON MULTIPLE TIMES IN A ROW WITHOUT NEEDING ANYTHING. STATES HE DID NOT REALIZE HE PRESSED THIS. HE DID STATE THAT HE IS FEELING BETTER AND HOPING HE WILL GO HOME SOON. HE HAS A DACOSTA IN PLACE THAT IS PATENT AND DRAINING. THERE IS AN UNSTAGABLE PRESSURE ULCER ON HIS LEFT HIP WITH ESCHAR IN PLACE. HIS COCYX HAS MILD REDNESS BUT STATES HE DOES NOT WANT A DRESSING BECAUSE IT MAY PEEL HIS SKIN OFF. DID EDUCATE THE PATIENT ON HIS WOUNDS, HIS DRESSINGS, AND THE CHYANGES. NO ACUTE CONCERNS FROM THE PATIENT. [facility] WAS NOTIFIED WHEN THE PATIENT WAS ADMITTED TO THE HOSPITAL AND THEY SAW THE PATIENT TODAY.
[2019-08-06 04:45] LABS: BASOPHILS ABSOLUTE AUTO 0.04 K/mm3 (0.00-0.23); BASOPHILS PERCENT AUTO 1 % (0-2); EOSINOPHILS ABSOLUTE AUTO 0.32 K/mm3 (0.00-0.68); EOSINOPHILS PERCENT AUTO 5 % (0-6); Hematocrit 32.2 % (37.0-53.0); Hemoglobin 10.6 g/dL (13.5-17.5); IMMATURE GRAN ABSOLUTE AUTO 0.04 K/mm3 (0.00-0.10); IMMATURE GRAN PERCENT AUTO 1 % (0-1); LYMPHOCYTES ABSOLUTE AUTO 0.93 K/mm3 (0.84-5.20); LYMPHOCYTES PERCENT AUTO 16 % (21-46); MONOCYTES PERCENT AUTO 8 % (4-13); Mean Corpuscular HGB 29.4 pg (26.0-34.0); Mean Corpuscular HGB Conc 32.9 g/dL (31.5-36.5); Mean Corpuscular Volume 89 fL (80-100); Mean Platelet Volume 9.5 fL (9.1-12.4); NEUTROPHILS ABSOLUTE AUTO 4.09 K/mm3 (1.96-9.15); NEUTROPHILS PERCENT AUTO 69 % (41-73); Platelet Count 211 K/mm3 (150-400); RDW Coefficient Variation 14.2 % (11.7-14.2); RDW Standard Deviation 46.3 fL (35.1-46.3); White Blood Cell Count 5.92 K/mm3 (4.00-11.30)
[2019-08-06 05:08] LABS: Anion Gap 6 mmol/L (6-16); Blood Urea Nitrogen 14 mg/dL (8-24); Bun/Creatinine Ratio 24.1 (12.0-20.0); CO2, Blood 26 mmol/L (21-32); Chloride, Blood 105 mmol/L (98-108); Creatinine, Blood 0.58 mg/dL (0.60-1.20); Glomerular Filtration Rate >60 (60-); Glucose, Blood 99 mg/dL (70-99); Potassium, Blood 4.5 mmol/L (3.5-5.5); Sodium, Blood 137 mmol/L (136-145)
--- NOTE | 2019-08-06 06:23 | NUR ---
SHIFT SUMMARY PT IS A 78 Y/O MALE, ADMITTED FOR MULTIPLE PES. HE WAS VERY CONFUSED DURING THE NIGHT, OCCASIONALLY YELLING OUT. DACOSTA IN PLACE, PATENT AND DRAINING. PT IS INCONTINENT OF BOWEL. PT DENIED ANY COMPLAINTS OF PAIN, SOB OR NAUSEA DURING THE NIGHT. VITAL SIGNS STABLE. NO ACUTE CHANGES IN PT CONDITION NOTED DURING THE NIGHT. WILL CONTINUE TO MONITOR AND TREAT PER EMAR UNTIL HAND OFF TO DAY SHIFT RN.
--- NOTE | 2019-08-07 06:13 | NUR ---
SHIFT SUMMARY PT IS A 78 Y/O MALE, ADMITTED FOR MULTIPLE PE'S. HE IS A&O X 2, CONFUSED AT TIMES, AND WILL OFTEN YELL OUT FOR HELP RATHER THAN USE THE CALL LIGHT. HE DENIED ANY COMPLAINTS OF PAIN, NAUSEA OR SOB. PT IS ON BEDREST, TURN Q2H. PRESSURE WOUND ON HIS L HIP HAS DRESSINGS IN PLACE C/D/I. VITAL SIGNS STABLE. NO OTHER ACUTE CHANGES IN PT CONDITION NOTED. WILL CONTINUE TO MONITOR AND TREAT PER EMAR UNTIL HAND OFF TO DAY SHIFT RN.
--- NOTE | 2019-08-07 18:12 | NUR ---
SHIFT SUMMARY PATIENT IS VERY LONELY AND PRESSES HIS BUTTON ALOT. MAY NEED RE-EVALUATION FROM SPEECH THERAPY PATIENT IS HAVING A LOT OF SWALLOWING ISSUES EVEN SITTING AT 90 DEGREES AND TAKING SMALL BITES. HE IS NECTAR THICK AND NO MIXED CONSISTENCIES. HE IS STILL STRUGGLING MILDLY. MAY NEED A SECOND SWALLOW EVALUATION.
--- NOTE | 2019-08-08 06:22 | NUR ---
SHIFT SUMMARY PT IS A 78 Y/O MALE, ADMITTED FOR MULTIPLE PES. HE HAS BEEN VERY CONFUSED DURING THE NIGHT, A&O X SELF AND FAMILY ONLY, AND UNABLE TO REMEMBER WHERE HE IS OR THE DATE. PT DID HAVE SOME BLEEDING NOTED ON HIS SCROTUM, THOUGH IT IS NOT CLEAR IF THE PT HAS BEEN SCRATCHING OR IF BLEEDING IS DUE TO SKIN BREAKDOWN. PT DENIED ANY COMPLAINTS OF PAIN, NAUSEA OR SOB. VITAL SIGNS STABLE. NO OTHER ACUTE CHANGES IN PT CONDITION NOTED. WILL CONTINUE TO MONITOR AND TREAT PER EMAR UNTIL HAND OFF TO DAY SHIFT RN.
--- NOTE | 2019-08-08 11:33 | NUR ---
[facility] care Pt gave permission for student nurse to provide care on 08/08/19 from [id number].
--- NOTE | 2019-08-08 16:56 | NUR ---
SHIFT SUMMARY NO ACUTE CHANGES. PATIENT DENEIS PAIN, NAUSEA, AND SHORTNESS OF BREATH. PATIENT REPORTS PAIN ONLY WHEN WOUNDS CLEANED/DRESSING REPLACED. PATIENT WORKED WITH PT TODAY. PATIENT Q2 REPOSITION. PATIENT PLEASANTLY CONFUSED. PLACEMENT PENDING. CALL LIGHT IN REACH.
--- NOTE | 2019-08-09 05:39 | NUR ---
SHIFT SUMMARY PT WITH INCREASED CONFUSION DURING THE NIGHT, BUT IS ABLE TO ANSWER ORIENTATION Q'S APPROP. PT CALLS OUT INTO THE HALLWAY FOR STAFFMEMBERS, DOES NOT REMEMBER TO USE CALL LT. DACOSTA CATH IN PLACE DRAINING DARK YELLOW URINE. MEATUS IS SPLIT, DACOSTA CATH CARE PROVIDED. PROTECTIVE BOOTIES APPLIED TO BILAT FT. DRESSING TO L HIP IS C/D/I. DENIES PAIN, N/V, OR ANY DISCOMFORT. WILLL CONT TO MONITOR AND PROVIDE CARE UNTIL PRESUMED BY ONCOMING RN.
--- NOTE | 2019-08-09 14:20 | NUR ---
supportive time with patient will update again pol left for her will contact.
--- NOTE | 2019-08-09 16:21 | NUR ---
SUMMARY: PT ADMITTED FOR MULTIPLE PE'S. PT DENIES SOB, CHEST PAIN, VSS THIS SHIFT. CONTINUES TO BE ORIENTED BUT VERY FORGETFUL, BED ALARM ON. TURNED Q2 AND CHANGED PRN. BM TODAY, CHRONIC DACOSTA. CABLE MAINTAINER CINTHIA SAW PT TODAY. CONTINUING TO WORK ON PT PLACEMENT AT DISCHARGE. NO ACUTE SAFETY CONCERNS AT THIS TIME. WILL REPORT TO BESS REYNA.
--- NOTE | 2019-08-10 05:32 | NUR ---
SHIFT SUMMARY NO ACUTE CHANGES OVERNIGHT. PT CALLS OUT INTO HALLWAY "HELLO" EVERY 30 MINS OR SO. BED ALARM ON FOR SAFETY. REPOSITIONED Q2H, PT IS VERY STIFF AND RIGID. HEEL PROTECTORS NO BILAT HEELS. PREVENTIVE MEPILEX TO R HIP, SMALL PRESSURE ULCER TO L HIP. SCROTUM IS EXCORIATED AND SWOLLEN. PT HAS SEVERAL CUPS OF ICE CREAM AND AN ENSURE TONIGHT, REQUIRES ASSISTANCE WITH FEEDING. WILL CONT TO MONITOR AND PROVIDE CARE UNTIL PRESUMED BY ONCOMING RN.
--- NOTE | 2019-08-10 16:56 | NUR ---
PT AOX3 WITH CONFUSION. PT HAS BEEN IN BED MOST OF THE DAY AND IS A Q2 TURN DUE TO BEING VERY CONTRACTED UP WITH HIS EXTREMETIES. PHYSICAL THERAPY GOT PT UP IN A CHAIR EARALIER, BUT PT WAS A VERY HEAVY MAX ASSIST BACK TO BED TWO PERSON. PT HAS CHRONIC DACOSTA CATH IN PLACE AND IS INCONTENT OF FR[place]LIN. CHANGED L HIP MEPIPLEX IT WAS SOAKED THROUGH. ALL OTHER MEPIPLEX INTACT AND WORKING WELL. WILL CONTINUE TO MONITOR.
--- NOTE | 2019-08-11 05:49 | NUR ---
SHIFT SUMMARY NO ACUTE CHANGES OVERNIGHT. PT DID NOT SLEEP MUCH TONIGHT, USES CALL LT VERY FREQUENTLY OR CALLS OUT INTO HALLWAY. PT IS ORIENTED TO SELF AND PLACE, DISORIENTED TO DATE. REPORTS DATE IS APR 1920. PT CONTRACTURED AND STIFF TO BLE, Q2H TURNS COMPLETE. DACOSTA CATH IN PLACE, DRAINING DARK YELLOW URINE. DENIES PAIN. DENIES SOB. WILL CONT TO MONITOR AND PROVIDE CARE UNTIL PRESUMED BY ONCOMING RN.
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
--- NOTE | 2019-08-12 05:38 | NUR ---
PT ORIENTED TO SELF THIS SHIFT. PT CALLS OUT OFTEN AND UNABLE TO USE CALL LIGHT APPROPRIATELY. PT HITS CALL LIGHT WHILE TRYING TO CHANGE THE CHANNEL ON THE TELEVISION. REORIENTING THE PATIENT TO CORRECT BUTTONS FAILS TO WORK UPON LEAVING THE ROOM. PT TURNED MULTIPLE TIMES THROUGHOUT THE EVENING AND STICKER HAND DUE TO THE PATIENT UNABLE TO REMAIN COMFORTABLE AFTER SHORT PERIODS OF TIME. PT MEDICATED 1X WITH TYLENOL FOR PAIN. PT HAS BEEN MORE RESTFUL THE MORNING HAS PROGRESSED. WILL CONTINUE TO MONITOR.
[2019-08-12] MEDS ORDERED: ACET325 PO (14:30)
[2019-08-12] MEDS ORDERED: JUVEN PACKET1 EACH PO (14:31)
[2019-08-12] MEDS ORDERED: DOCU100 PO (14:31)
[2019-08-12] MEDS ORDERED: XARELTO15 MG PO (14:33)
--- NOTE | 2019-08-12 15:46 | NUR ---
DISCHARGE PT & FAMILY MEET WITH [facility]. DISCUSS HOME W [facility]. DR HEBERT PROVIDE D/C ORDERS HOME. WOUND CARE/DRSG CHANGES PROVIDED. WOUND PHOTOS OBTAINED. IV SITE D/C INTACT. SCRIPTS FAXED TO [facility]/REQUEST. D/C INSTRUCT REVIEWED W PT'S . [facility] WILL ARRANGE TRANSPORT HOME FOR APPROX 1630. MEDICAL EQUIPMENT DELIVERED TO HOME. DACOSTA CATH PATENT/JAMISON. TALENT ACQUISITION CONSULTANT PROVIDE BEDBATH THIS AM. VSS.
--- NOTE | 2019-08-12 17:56 | NUR ---
[facility]ENIO [facility] FOR TRANSPORT HOME @ [phone].
[2019-08-24] MEDS ORDERED: Cephalexin500 MG PO (15:55)
== END 2019-08-12 17:50 | disposition home or self-care (01) | DRG 175 ==
LOC: ER 17:16 → ERHOLD 08-04 01:03 → ICUE 08-04 01:57 → MEDS 08-05 11:59
PROVIDERS: Internal Medicine; Nurse Practitioner Acute Care; Physician Assistant; ADMIT Internal Medicine
DX: I26.94 Multiple subsegmental thrombotic pulmonary emboli without acute cor pulmonale (principal); R53.2 Functional quadriplegia; E44.0 Moderate protein-calorie malnutrition; E87.2 Acidosis; N39.0 Urinary tract infection, site not specified; D68.59 Other primary thrombophilia; S06.9X0A Unspecified intracranial injury without loss of consciousness, initial encounter; F03.90 Unspecified dementia, unspecified severity, without behavioral disturbance, psychotic disturbance, mood disturbance, and anxiety; Z51.5 Encounter for palliative care; L89.629 Pressure ulcer of left heel, unspecified stage; L89.619 Pressure ulcer of right heel, unspecified stage; R54 Age-related physical debility; Z87.820 Personal history of traumatic brain injury; R13.10 Dysphagia, unspecified; E86.0 Dehydration; Z68.22 Body mass index [BMI] 22.0-22.9, adult; L89.220 Pressure ulcer of left hip, unstageable
CPT/HCPCS: 36415; 51702; 71045; 71260; 72170; 74018; 74177; 74230; 80048; 80053; 81001; 82550; 82553; 82803; 83605; 84145; 85025; 85610; 85651; 85730; 86140; 87040; 87077; 87086; 87186; 92526; 92610; 92611; 93005; 93010; 96361-59; 96365-59; 96366-59; 96367-59; 96368; 97110; 97162; 97166; 97530; 97535; 99285-25; A9270; A9270-GY; J0696; J1644; J2543; J3370; J7120; Q9967

== ENCOUNTER → 2019-08-22 | Outpatient (CLI) | payer OTHER ==
[~2019-08-22] MED LIST changes: +ACET325 PO; +Cephalexin500 MG PO; +DOCU100 PO; +JUVEN PACKET1 EACH PO; +XARELTO15 MG PO
[2019-08-22 12:56] LABS: International Normalized Ratio 1.45; Prothrombin Time Results 14.9 Sec (9.7-11.5)
== END | disposition home or self-care (01) ==
LOC: LAB HH 11:00
PROVIDERS: Nurse Practitioner Family
DX: Z79.01 Long term (current) use of anticoagulants (principal); Z51.81 Encounter for therapeutic drug level monitoring
CPT/HCPCS: 85610

== ENCOUNTER → 2019-08-30 | Outpatient (CLI) | payer OTHER ==
[2019-08-30 18:19] LABS: Prothrombin Time Results 67.2 Sec (9.7-11.5)
[2019-08-30 19:21] LABS: International Normalized Ratio 7.63
== END | disposition home or self-care (01) ==
LOC: LAB SHORT 11:55 → LAB HH 11:55
PROVIDERS: Nurse Practitioner Family
DX: Z79.01 Long term (current) use of anticoagulants (principal); Z51.81 Encounter for therapeutic drug level monitoring
CPT/HCPCS: 85610

== ENCOUNTER → 2019-08-31 | Outpatient (CLI) | payer OTHER ==
[2019-08-31 16:56] LABS: Prothrombin Time Results 52.5 Sec (9.7-11.5)
[2019-08-31 17:09] LABS: International Normalized Ratio 5.81
== END | disposition home or self-care (01) ==
LOC: LAB HH 14:00
PROVIDERS: Nurse Practitioner Family
DX: Z79.01 Long term (current) use of anticoagulants (principal); Z51.81 Encounter for therapeutic drug level monitoring
CPT/HCPCS: 85610